=== PATIENT | male | born 1980 | race Caucasian/White ===

== ENCOUNTER 2024-03-14 09:53 | Inpatient (IN) | payer BC, MEDICAID, SELFPAY ==
[2024-03-14 09:58] VITALS: BP 164/94; PULSE 74; RESP 18; TEMP 36.4; O2SAT 99
--- NOTE | 2024-03-14 10:07 | PC.NURSE ---
[facility] CALLED AND STATED THAT PATIENT HAS TOUGHTS OF SI. PATIENT STATES THAT HE WOULD PULL THE TRIGGER TO END HIS LIFE. 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
--- NOTE | 2024-03-14 10:14 | ED.C_ITS ---
HPI - Psych 2 General: Chief Complaint: Psychiatric Symptoms Stated Complaint: MHE, Behavioral Health referral Time Seen by Provider: 03/14/24 10:12 Source: patient Mode of arrival: ambulatory Limitations: no limitations History of Present Illness: Patient is a 43-year-old male presents to ED today after he was seen at [facility] and referred to the emergency department. He reportedly made suicidal statements while he was there. Patient tells me he does feel suicidal. He states he has had many plans in the past. He does report a previous suicide attempt last month by taking his belt and wrapping it around his neck and attempting to hang himself in his loft. He does not take any psychiatric medications. When asked about previous psychiatric diagnoses he tells me cry baby and attention seeking . MD complaint: suicidal ideation and feels depressed Onset (ago): month(s) Duration: constant History of same: Yes Relieving factors: none Exacerbating factors: other (life stressors) Associated psychiatric symptoms: depression and suicidal ideation Associated symptoms: Reports depression and suicidal ideation; Deny auditory hallucinations, visual hallucinations or homicidal ideation Treatments prior to arrival: none If self harm: admits thoughts of self harm, has plan and has acted on plan (last month attempted suicide by hanging) Review of Systems 2 Const: Denies: fever(s) or chills Card: Denies: chest pain, palpitations, lightheadedness or syncope Resp: Denies: dyspnea GI: Denies: abdominal pain, nausea, vomiting or diarrhea Skin/Breast: Denies: rash Neuro: Denies: headache(s) Psych: Reports: depression, hopelessness and suicidal ideation; Denies: visual hallucinations, auditory hallucinations or homicidal ideation [facility] ED 2 PFSH: Medical History Psychiatric care Physical Exam 2 Const: COMMON NORMALS: no acute distress, patient oriented x3, alert and well nourished GENERAL APPEARANCE: cooperative Resp: COMMON NORMALS: normal respiratory effort and clear to auscultation bilaterally AUSCULTATION: clear to auscultation bilaterally Cardio: COMMON NORMALS: regular rate and regular rhythm RATE: regular rate RHYTHM: regular rhythm Neuro: [place] COMA SCALE: document GCS findings [place] coma scale eye opening: Spontaneous [place] coma scale verbal response: Orientated [place] coma scale motor response: Obey commands [place] coma scale total score: 15 COMMON NORMALS: patient oriented x3 SENSORIUM/ORIENTATION: Yes alert Psych: COMMON NORMALS: mental status grossly normal, Normal thought process present, cooperative, normal affect, speech normal and activity/motor behavior normal APPEARANCE: Yes grossly normal ATTITUDE: Yes calm ACTIVITY/MOTOR BEHAVIOR: No psychomotor agitation and Yes Avoids eye contact (attititude/behavior) SPEECH: Yes normal speech MOOD & AFFECT: Yes Flat affect present THOUGHT PROCESS: Normal thought process present THOUGHT CONTENT: Yes Suicidality present ATTENTION/CONCENTRATION: Yes attention grossly intact and Yes concentration grossly intact MEMORY/COGNITION: Yes memory grossly intact and Yes cognition grossly intact INSIGHT: Good insight present (Psych) JUDGEMENT: Good judgement present (Psych) Course 2 Consultations: Consultation #1: Dr. Flores-accepts hospitalization Vital Signs: Vital signs: Vital Signs Temperature 97.6 F 03/14/24 09:58 Pulse Rate 74 03/14/24 09:58 Respiratory Rate 18 03/14/24 09:58 Blood Pressure 164/94 03/14/24 09:58 Pulse Oximetry 99 03/14/24 09:58 Oxygen Delivery Me thod Room Air 03/14/24 09:58 [facility] - Psych Medical Decision Making Patient will be an admit to NPU to Dr. Flores for treatment of depression/suicidal ideations. He was placed on a 96-hour hold. Lab Data 03/14/24 10:11 03/14/24 10:11 Laboratory Results WBC 7.90 10^3/uL (3.29-11.43) 03/14/24 10:11 RBC 5.32 10^6/uL (3.85-5.65) 03/14/24 10:11 Hgb 16.60 g/dL (11.27-16.99) 03/14/24 10:11 Hct 48.5 % (37-53) 03/14/24 10:11 MCV 91.2 fl (82-101) 03/14/24 10:11 MCH 31.2 pg (27-33) 03/14/24 10:11 MCHC 34.2 g/dL (30-55) 03/14/24 10:11 RDW 13.2 % (12.1-15.1) 03/14/24 10:11 Plt Count 231 10^3/cmm (157-399) 03/14/24 10:11 MPV 8.4 fL (7.4-10.4) 03/14/24 10:11 Neut % (Auto) 69.1 % 03/14/24 10:11 Lymph % (Auto) 24.4 % 03/14/24 10:11 Dixie % (Auto) 5.2 % 03/14/24 10:11 Eos % (Auto) 0.4 % 03/14/24 10:11 Baso % (Auto) 0.5 % 03/14/24 10:11 Neut # (Auto) 5.46 10^3/uL (1.8-7.7) 03/14/24 10:11 Lymph # (Auto) 1.9 10^3/uL (0.8-4.8) 03/14/24 10:11 Dixie # (Auto) 0.4 10^3/uL (0.2-0.9) 03/14/24 10:11 Eos # (Auto) 0.0 10^3/uL (0.0-0.8) 03/14/24 10:11 Baso # (Auto) 0.0 10^3/uL (0.0-0.1) 03/14/24 10:11 Nucleated RBC % (auto) 0 % 03/14/24 10:11 Nucleated RBCs # 0.0 /100WBC 03/14/24 10:11 Sodium 133 mmol/L (136-145) L 03/14/24 10:11 Potassium 3.9 mmol/L (3.5-5.1) 03/14/24 10:11 Chloride 99 mmol/L (98-107) 03/14/24 10:11 Carbon Dioxide 19 mmol/L (22-29) L 03/14/24 10:11 Anion Gap 18.9 (5-19) 03/14/24 10:11 BUN 16 mg/dL (6-20) 03/14/24 10:11 Creatinine 1.1 mg/dL (0.7-1.2) 03/14/24 10:11 GFR Calculation 73.4 mL/min (90-130) L 03/14/24 10:11 Glucose 121 mg/dL (65-115) H 03/14/24 10:11 Calculated Osmolality 278 mOsm/kg (285-295) L 03/14/24 10:11 Calcium 9.2 mg/dL (8.5-10.5) 03/14/24 10:11 Total Bilirubin 0.5 mg/dL (0.15-1.2) 03/14/24 10:11 AST 18 U/L (0-40) 03/14/24 10:11 ALT 10 U/L (0-41) 03/14/24 10:11 Alkaline Phosphatase 72 U/L (40-130) 03/14/24 10:11 Total Protein 7.8 g/dL (6.6-8.7) 03/14/24 10:11 Albumin 4.4 g/dL (3.5-5.2) 03/14/24 10:11 Globulin 3.4 g/dL (1.3-4.6) 03/14/24 10:11 Salicylates < 0.3 mg/dL (3-10) L 03/14/24 10:11 Urine Opiates Screen Negative ng/mL (Negative) 03/14/24 10:05 Acetaminophen < 5.0 ug/mL (10-30) L 03/14/24 10:11 Ur Barbiturates Screen Negative ng/mL (Negative) 03/14/24 10:05 Ur Phencyclidine Scrn Negative ng/mL (Negative) 03/14/24 10:05 Ur Amphetamines Screen Negative ng/mL (Negative) 03/14/24 10:05 U Benzodiazepines Scrn Negative ng/mL (Negative) 03/14/24 10:05 Urine Cocaine Screen Negative ng/mL (Negative) 03/14/24 10:05 U Marijuana (THC) Screen Positive ng/mL (Negative) H 03/14/24 10:05 Ethyl Alcohol < 10 mg/dL (0-10) 03/14/24 10:11 No radiology studies performed this visit Discharge Plan Discharge Patient Disposition: Admitted As Inpatient Clinical Impression: Suicidal ideation Condition: Stable Prescriptions: No Action No Known Home Medications Patient Instructions: Opioid Safety, Pain Management Coding Level of Care Code ED Director Trade for Miri Gonzalez
[2024-03-14 10:24] LABS: Basophils % 0.5 %; Eosinophils % 0.4 %; Hematocrit 48.5 % (37-53); Lymphocytes # 1.9 10^3/uL (0.8-4.8); Lymphocytes % 24.4 %; Mean Corpuscular HGB Conc 34.2 g/dL (30-55); Mean Corpuscular Hemoglobin 31.2 pg (27-33); Mean Corpuscular Volume 91.2 fl (82-101); Mean Platelet Volume 8.4 fL (7.4-10.4); Monocytes # 0.4 10^3/uL (0.2-0.9); Monocytes % 5.2 %; Neutrophils # 5.46 10^3/uL (1.8-7.7); Neutrophils % 69.1 %; Nucleated Red Blood Cells % 0 %; Platelet Count 231 10^3/cmm (157-399); Red Blood Count 5.32 10^6/uL (3.85-5.65); Red Cell Distribution Width 13.2 % (12.1-15.1)
[2024-03-14 10:34] LABS: Alanine Aminotransferase 10 U/L (0-41); Albumin Level 4.4 g/dL (3.5-5.2); Alkaline Phosphatase 72 U/L (40-130); Aspartate Amino Transferase 18 U/L (0-40); Blood Urea Nitrogen 16 mg/dL (6-20); Calcium 9.2 mg/dL (8.5-10.5); Carbon Dioxide 19 mmol/L (22-29); Chloride 99 mmol/L (98-107); Creatinine Clr Calc Pharmacy 96.2746; Globulin 3.4 g/dL (1.3-4.6); Glomerular Filtration Rate 73.4 mL/min (90-130); Glucose 121 mg/dL (65-115); Osmolality Calculated 278 mOsm/kg (285-295); Sodium 133 mmol/L (136-145); Total Bilirubin 0.5 mg/dL (0.15-1.2); Total Protein 7.8 g/dL (6.6-8.7)
[2024-03-14 10:36] LABS: Acetaminophen < 5.0 ug/mL (10-30); Alcohol Level < 10 mg/dL (0-10); Salicylate < 0.3 mg/dL (3-10)
[2024-03-14 10:37] LABS: Anion Gap 18.9 (5-19); Potassium 3.9 mmol/L (3.5-5.1)
[2024-03-14 10:38] LABS: Amphetamines Screen Urine Negative (Negative); Barbiturates Screen Urine Negative (Negative); Benzodiazepines Screen Urine Negative (Negative); Cocaine Screen Urine Negative (Negative); Opiate Screen Urine Negative (Negative); PCP Screen Urine Negative (Negative); THC Screen Urine Positive (Negative)
[2024-03-14 11:40] VITALS: RESP 18; O2SAT 98
[2024-03-14 11:52] VITALS: BP 130/87; PULSE 76; RESP 16; TEMP 37.1; O2SAT 100
[2024-03-14 14:00] VITALS: BP 118/79; PULSE 81; RESP 16; TEMP 36.6; O2SAT 99
--- NOTE | 2024-03-14 14:18 | PC.NURSE ---
96 Hr rights reviewed with patient @1125. All education reviewed. Patient verbalized no concerns or questions at this time. Copy left @bedside with patient. Patient provided a cup of coffee.
[2024-03-14 21:58] VITALS: BP 138/82; PULSE 74; RESP 17; TEMP 36.6; O2SAT 97
[2024-03-15 06:00] VITALS: BP 103/72; PULSE 81; RESP 16; TEMP 36.6; O2SAT 100
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
[2024-03-15] MEDS: nicotine 4 mg lozenge MUCOUS MEM (06:47)
[2024-03-15 14:00] VITALS: BP 125/86; PULSE 65; RESP 17; TEMP 36.8; O2SAT 99
[2024-03-15] MEDS: escitalopram 10 mg Tablet PO (14:03)
[2024-03-15] MEDS: trazodone 50 mg Tablet PO (20:07)
[2024-03-15] MEDS: hyDROXYzine 25 mg Capsule 50 MG PO (20:07)
[2024-03-15 21:32] VITALS: BP 114/76; PULSE 63; RESP 16; TEMP 36.5; O2SAT 98
[2024-03-16 06:00] VITALS: BP 128/77; PULSE 74; RESP 15; TEMP 36.6; O2SAT 97
[2024-03-16] MEDS: escitalopram 10 mg Tablet PO (09:49)
[2024-03-16] MEDS: nicotine 4 mg lozenge MUCOUS MEM (10:02)
[2024-03-16] MEDS: acetaminophen 325 mg Tablet 650 MG PO (11:08)
[2024-03-16 14:00] VITALS: BP 130/83; PULSE 80; RESP 20; TEMP 36.6; O2SAT 97
--- NOTE | 2024-03-16 14:37 | P.NPUPN_ITS ---
Subjective NPU 2 Subjective: Patient presented today reporting that he is feeling better with the Lexapro. He denied side effects to the medication and reported feeling optimistic about things moving forward. We discussed the importance of follow up and working with thr social work team on aftercare. Mental Status Exam 2 MSE Comments: This is a well-nourished well-developed white male in hospital scrubs with adequate grooming and limited eye contact. No abnormal movements except for mild psychomotor retardation. Cooperative with exam in mild to moderate distress. Speech was slightly decreased rate and volume. Mood described as better, affect congruent and less subdued. Thought process organized. Thought content: Patient denied suicidal or homicidal ideation, there were no delusions reported or noted, he denied any auditory or visual hallucinations. The patient reported feeling restless. He denied having any current thoughts of hurting himself or others. He also denied feeling paranoid or experiencing hallucinations. He reported having nightmares and flashbacks about traumatic events from his past. He has experienced significant loss recently, with the deaths of his younger brother, father, uncle, and aunt. Attention and concentration appear intact and memory appears reliable but none were formally tested. He is alert and oriented x 3. Insight and judgment are limited and impulse control is impaired. Vitals/I&O/Wt Last Vital Signs Temp 98 F 03/16/24 14:00 Pulse 80 03/16/24 14:00 Resp 20 H 03/16/24 14:00 BP 130/83 03/16/24 14:00 Pulse Ox 97 03/16/24 14:00 O2 Del Method Room Air 03/16/24 06:00 Data NPU 03/14/24 10:11 03/14/24 10:11 A&P Assessment and plan (1) Suicidal ideation: (2) Major depressive disorder, recurrent: (3) PTSD (post-traumatic stress disorder): Plan Patient is a 43-year-old male admitted with a history of depression, suicidal thoughts, and attempts. He has been through significant trauma in his childhood and has experienced recent losses. He has a history of substance use, including tobacco, alcohol, and cannabis. He is open to restarting medication for his depression and anxiety. 1. Started Lexapro 10 mg p.o. daily. 2. Encourage individual, group and milieu therapy. 3. Continue q-15 minute checks for safety.? 4.?Recommend sober living treatment at the highest level of care to which the patient is willing to commit. Involuntary Hold Information 2 96 Hour Hold: 96 Hour Involuntary Admission: Yes 96 Hour Hold Ending Date: 03/20/24 96 Hour Hold Ending Time: 10:45 Attestations NPU 2 Medical Necessity Statement*: Inpatient hospitalization is medically necessary and the clinically appropriate intervention ?at this time.? We will monitor/initiate medications and make changes as indicated. Likely length of stay 2-4 days. Coding Level of Care Code Acute Code for [facility]g Fwd Diagnoses Suicidal ideation R45.851 Major depressive disorder, recurrent F33.9 PTSD (post-traumatic stress disorder) F43.10
[2024-03-16] MEDS: ibuprofen 600 mg Tablet PO (16:24)
[2024-03-16 20:56] VITALS: BP 126/77; PULSE 66; RESP 18; TEMP 36.7; O2SAT 99
[2024-03-16] MEDS: trazodone 50 mg Tablet PO (21:12)
[2024-03-17 06:00] VITALS: BP 122/67; PULSE 71; RESP 17; TEMP 36.7; O2SAT 98
[2024-03-17] MEDS: ibuprofen 600 mg Tablet PO (07:54)
[2024-03-17] MEDS: escitalopram 10 mg Tablet PO (07:55)
[2024-03-17] MEDS: nicotine 4 mg lozenge MUCOUS MEM ×4 (10:12→21:28)
[2024-03-17 14:00] VITALS: BP 127/87; PULSE 66; RESP 20; TEMP 36.6; O2SAT 99
--- NOTE | 2024-03-17 15:49 | P.NPUPN_ITS ---
Subjective NPU 2 Subjective: Patient presented today reporting that things are going all right. He reports that he has been talking to his support network and they feel he is doing better as well. We discussed the social work team working on him having an appointment for after discharge. He denied any side effects to medication we discussed the likelihood of discharge in the next 48 hours with a tentative plan for discharge tomorrow. Mental Status Exam 2 MSE Comments: This is a well-nourished well-developed white male in hospital scrubs with adequate grooming and limited eye contact. No abnormal movements except for mild psychomotor retardation. Cooperative with exam in mild to moderate distress. Speech was slightly decreased rate and volume. Mood described as better, affect congruent and less subdued. Thought process organized. Thought content: Patient denied suicidal or homicidal ideation, there were no delusions reported or noted, he denied any auditory or visual hallucinations. The patient reported feeling restless. He denied having any current thoughts of hurting himself or others. He also denied feeling paranoid or experiencing hallucinations. He reported having nightmares and flashbacks about traumatic events from his past. He has experienced significant loss recently, with the deaths of his younger brother, father, uncle, and aunt. Attention and concentration appear intact and memory appears reliable but none were formally tested. He is alert and oriented x 3. Insight and judgment are limited and impulse control is impaired. Vitals/I&O/Wt Last Vital Signs Temp 98.1 F 03/17/24 06:00 Pulse 71 03/17/24 06:00 Resp 17 03/17/24 06:00 BP 122/67 03/17/24 06:00 Pulse Ox 98 03/17/24 06:00 O2 Del Method Room Air 03/17/24 06:00 Data NPU 03/14/24 10:11 03/14/24 10:11 A&P Assessment and plan (1) Suicidal ideation: (2) Major depressive disorder, recurrent: (3) PTSD (post-traumatic stress disorder): Plan Patient is a 43-year-old male admitted with a history of depression, suicidal thoughts, and attempts. He has been through significant trauma in his childhood and has experienced recent losses. He has a history of substance use, including tobacco, alcohol, and cannabis. He is open to restarting medication for his depression and anxiety. 1. Started Lexapro 10 mg p.o. daily. 2. Encourage individual, group and milieu therapy. 3. Continue q-15 minute checks for safety.? 4.?Recommend sober living treatment at the highest level of care to which the patient is willing to commit. Involuntary Hold Information 2 96 Hour Hold: 96 Hour Involuntary Admission: Yes 96 Hour Hold Ending Date: 03/20/24 96 Hour Hold Ending Time: 10:45 Attestations NPU 2 Medical Necessity Statement*: Inpatient hospitalization is medically necessary and the clinically appropriate intervention ?at this time.? We will monitor/initiate medications and make changes as indicated. Likely length of stay 1-3 days. Coding Level of Care Code Acute Code for g Fwd Diagnoses Suicidal ideation R45.851 Major depressive disorder, recurrent F33.9 PTSD (post-traumatic stress disorder) F43.10
[2024-03-17 21:57] VITALS: BP 115/75; PULSE 72; RESP 18; TEMP 36.3; O2SAT 99
[2024-03-18 06:00] VITALS: BP 113/74; PULSE 73; RESP 18; TEMP 36.6; O2SAT 99
[2024-03-18] MEDS: nicotine 4 mg lozenge MUCOUS MEM ×2 (06:24→12:05)
[2024-03-18] MEDS: ibuprofen 600 mg Tablet PO (09:21)
[2024-03-18] MEDS: escitalopram 10 mg Tablet PO (09:21)
--- NOTE | 2024-03-18 14:14 | P.NPUDS_ITS ---
Diagnoses at Discharge Discharge Diagnosis (1) Suicidal ideation: Status: Acute (2) Major depressive disorder, recurrent: Status: Acute (3) PTSD (post-traumatic stress disorder): Status: Acute Reason for Visit Reason for Visit: MHE, Behavioral Health referral Involuntary Hold Information 96 Hour Hold: 96 Hour Involuntary Admission: Yes 96 Hour Hold Ending Date: 03/20/24 96 Hour Hold Ending Time: 10:45 Mental Status Exam MSE Comments: This is a well-nourished well-developed white male in hospital scrubs with adequate grooming and limited eye contact. No abnormal movements except for mild psychomotor retardation. Cooperative with exam in mild to moderate distress. Speech was slightly decreased rate and volume. Mood described as better, affect congruent and less subdued. Thought process organized. Thought content: Patient denied suicidal or homicidal ideation, there were no delusions reported or noted, he denied any auditory or visual hallucinations. The patient reported feeling restless. He denied having any current thoughts of hurting himself or others. He also denied feeling paranoid or experiencing hallucinations. He reported having nightmares and flashbacks about traumatic events from his past. He has experienced significant loss recently, with the deaths of his younger brother, father, uncle, and aunt. Attention and concentration appear intact and memory appears reliable but none were formally tested. He is alert and oriented x 3. Insight and judgment are limited and impulse control is impaired. Discharge Data Studies Completed and Pending: Laboratory Results WBC 7.90 10^3/uL (3.2 9-11.43) 03/14/24 10:11 RBC 5.32 10^6/uL (3.8 5-5.65) 03/14/24 10:11 Hgb 16.60 g/dL (11.27 -16.99) 03/14/24 10:11 Hct 48.5 % (37-53) 03/14/24 10:11 MCV 91.2 fl (82-101) 03/14/24 10:11 MCH 31.2 pg (27-33) 03/14/24 10:11 MCHC 34.2 g/dL (30-55) 03/14/24 10:11 RDW 13.2 % (12.1-15.1 ) 03/14/24 10:11 Plt Count 231 10^3/cmm (157 -399) 03/14/24 10:11 MPV 8.4 fL (7.4-10.4) 03/14/24 10:11 Neut % (Auto) 69.1 % 03/14/24 10:11 Lymph % (Auto) 24.4 % 03/14/24 10:11 Gem % (Auto) 5.2 % 03/14/24 10:11 Eos % (Auto) 0.4 % 03/14/24 10:11 Baso % (Auto) 0.5 % 03/14/24 10:11 Neut # (Auto) 5.46 10^3/uL (1.8 -7.7) 03/14/24 10:11 Lymph # (Auto) 1.9 10^3/uL (0.8- 4.8) 03/14/24 10:11 Gem # (Auto) 0.4 10^3/uL (0.2- 0.9) 03/14/24 10:11 Eos # (Auto) 0.0 10^3/uL (0.0- 0.8) 03/14/24 10:11 Baso # (Auto) 0.0 10^3/uL (0.0- 0.1) 03/14/24 10:11 Nucleated RBC % (a uto) 0 % 03/14/24 10:11 Nucleated RBCs # 0.0 /100WBC 03/14/24 10:11 Sodium 133 mmol/L (136-1 45) L 03/14/24 10:11 Potassium 3.9 mmol/L (3.5-5 .1) 03/14/24 10:11 Chloride 99 mmol/L (98-107 ) 03/14/24 10:11 Carbon Dioxide 19 mmol/L (22-29) L 03/14/24 10:11 Anion Gap 18.9 (5-19) 03/14/24 10:11 BUN 16 mg/dL (6-20) 03/14/24 10:11 Creatinine 1.1 mg/dL (0.7-1. 2) 03/14/24 10:11 GFR Calculation 73.4 mL/min (90-1 30) L 03/14/24 10:11 Glucose 121 mg/dL (65-115 ) H 03/14/24 10:11 Calculated Osmolal ity 278 mOsm/kg (285- 295) L 03/14/24 10:11 Calcium 9.2 mg/dL (8.5-10 .5) 03/14/24 10:11 Total Bilirubin 0.5 mg/dL (0.15-1 .2) 03/14/24 10:11 AST 18 U/L (0-40) 03/14/24 10:11 ALT 10 U/L (0-41) 03/14/24 10:11 Alkaline Phosphata se 72 U/L (40-130) 03/14/24 10:11 Total Protein 7.8 g/dL (6.6-8.7 ) 03/14/24 10:11 Albumin 4.4 g/dL (3.5-5.2 ) 03/14/24 10:11 Globulin 3.4 g/dL (1.3-4.6 ) 03/14/24 10:11 Salicylates < 0.3 mg/dL (3-10 ) L 03/14/24 10:11 Urine Opiates Scre en Negative ng/mL (N egative) 03/14/24 10:05 Acetaminophen < 5.0 ug/mL (10-3 0) L 03/14/24 10:11 Ur Barbiturates Sc reen Negative ng/mL (N egative) 03/14/24 10:05 Ur Phencyclidine S crn Negative ng/mL (N egative) 03/14/24 10:05 Ur Amphetamines Sc reen Negative ng/mL (N egative) 03/14/24 10:05 U Benzodiazepines Scrn Negative ng/mL (N egative) 03/14/24 10:05 Urine Cocaine Scre en Negative ng/mL (N egative) 03/14/24 10:05 U Marijuana (THC) Screen Positive ng/mL (N egative) H 03/14/24 10:05 Ethyl Alcohol < 10 mg/dL (0-10) 03/14/24 10:11 Vitals: Last Vital Signs Temp 97.8 F 03/18/24 06:00 Pulse 73 03/18/24 06:00 Resp 18 03/18/24 06:00 BP 113/74 03/18/24 06:00 Pulse Ox 99 03/18/24 06:00 O2 Del Method Room Air 03/17/24 06:00 Discharge Plan Discharge Patient Disposition: Home Condition: Stable Prescriptions: New trazodone 50 mg Tablet 50 mg PO BEDTIME PRN (Reason: Sleep) 30 Days Qty: 30 1RF escitalopram oxalate 10 mg Tablet 10 mg PO DAILY 30 Days Qty: 30 1RF No Action No Known Home Medications Discharge Orders: Discharge Order (Routine); Ordered 03/18/24 Ordered By: Jah Flores Referrals: [facility] [Outside] - 03/23/24 8:45 am (Hospital discharge assessment for safety with Sh[facility]) Discharge Diet: Regular Discharge Activity: Resume usual activity Patient Instructions: Opioid Safety, Pain Management Discharge Attestations NPU Time Spent in Discharge Care*: less than 30 min Specific Discharge Activities: Specific discharge activities: educating patient, discussing with family independence case manager/social workers/dc planners, documenting/other paperwork and evaluating patient/reviewing data Coding Level of Care Code Acute Code for Chg Fwd Diagnoses Suicidal ideation R45.851 Major depressive disorder, recurrent F33.9 PTSD (post-traumatic stress disorder) F43.10
[2024-03-18 14:31] VITALS: BP 113/74; PULSE 73; RESP 18; TEMP 36.6; O2SAT 99
== END 2024-03-18 15:20 | disposition home or self-care (01) | DRG 885 ==
LOC: ER 11:17 → NP 11:25
PROVIDERS: Admitting Provider Psychiatry & Neurology Psychiatry; Emergency Provider Physician Assistant; Visit Provider Psychiatry & Neurology Psychiatry
DX: F33.9 Major depressive disorder, recurrent, unspecified (principal); R45.851 Suicidal ideations; F41.9 Anxiety disorder, unspecified; F43.10 Post-traumatic stress disorder, unspecified; Z63.4 Disappearance and death of family member; F17.210 Nicotine dependence, cigarettes, uncomplicated; Z91.51 Personal history of suicidal behavior
CPT/HCPCS: 80053; 80306; 80307; 85025; 97150; 97165; 99285

== ENCOUNTER 2025-02-09 00:52 | Emergency (ER) | payer BC, MEDICAID, SELFPAY ==
[2025-02-09 01:04] VITALS: BP 144/90; PULSE 76; RESP 18; TEMP 36.6; O2SAT 96; BMI 21.8
--- NOTE | 2025-02-09 01:32 | W.ED.PSYCHS ---
HPI - Psych General: Chief Complaint: Psychiatric Symptoms Stated Complaint: MHE Time Seen by Provider: 02/09/25 00:59 History of Present Illness: Patient is a male of unspecified age who was brought to the ED by police after making concerning statements. Patient reports that his truck broke down, requiring him to walk approximately [address] town. He states he consumed four shots of [place] honey alcohol while walking. Patient was staying at a friend's house when police arrived and brought him to the ED because he had made inappropriate statements, including telling an officer if he wanted to do me the best favor, he'd just pull his gun off and shoot me. Patient reports he was tired, upset about his truck breaking down, and states it's just one thing after another. He denies being rebellious but acknowledges he wasn't in the greatest of moods when police arrived. Patient reports history of depression all my life and previous ED visit last year for similar concerns. He was prescribed medication (name not recalled) by Dr. Flores. Patient discontinued the medication after seeing providers at [facility] in [place] and [facility]. He states the medications didn't seem to help me that much and believes his mental health is more affected by his environment than requiring medication. Patient reports significant psychosocial stressors including the of his brother in [place] [facility] in 2019, followed by his father's the subsequent year. He describes feeling that he failed him and my family and myself. Patient also reports medical history of brain aneurysm and a couple of strokes approximately 15 years ago. He expresses frustration with his current inability to function at the level he previously could, stating I can't seem to function anymore, and it bothers me. As a man, it bothers me real bad. 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 He expresses desire to return to work and denies current suicidal ideation. He acknowledges poor coping with stress, stating I get overwhelmed and stressed out for things that should not overwhelm me or stress me out. Related Data Previous Rx's ?Medication ?Instructions ?Recorded escitalopram oxalate 10 mg tablet 10 mg PO DAILY 30 days #30 tabs 03/18/24 trazodone 50 mg tablet 50 mg PO BEDTIME PRN Sleep 30 days 03/18/24 #30 tabs buspirone 5 mg tablet 5 mg PO TID #90 tabs 05/11/24 Allergies Allergy/AdvReac Type Severity Reaction Status Date / Time NKDA Allergy NKDA Uncoded 02/09/25 01:35 Review of Systems General: Reports: 10 or more systems reviewed and unremarkable except in HPI and below PFSH ED PFSH: Medical History Psychiatric care Social History Smoking and tobacco/nicotine status: current every day tobacco/nicotine user (1 PPD) Physical Exam Const: COMMON NORMALS: no acute distress, patient oriented x3, alert and well nourished HENMT: COMMON NORMALS: normocephalic HEAD & SCALP: normocephalic Eye: COMMON NORMALS: Equal, round and reactive pupils present, EOMs intact bilaterally and conjunctivae normal CONJUNCTIVA: Yes conjunctivae normal PUPIL: Yes Equal, round and reactive pupils present Chest: COMMONS NORMALS: normal inspection of the chest and normal palpation of entire chest wall Resp: COMMON NORMALS: normal respiratory effort, No retractions, No use of accessory muscles, clear to auscultation bilaterally and percussion normal AUSCULTATION: clear to auscultation bilaterally PERCUSSION: percussion normal GI: COMMON NORMALS: Normal to inspection, nondistended, normoactive bowel sounds present, Soft to palpation, non-tender, No hepatosplenomegaly present, no masses and no bruits PALPATION: Yes Soft to palpation and Yes No hepatosplenomegaly present Extremity: COMMON NORMALS: normal to inspection, full ROM, capillary refill normal, no joint enlargement, no clubbing, cyanosis or edema, no calf tenderness and no pedal edema Neuro: COMMON NORMALS: patient oriented x3 SENSORIUM/ORIENTATION: Yes alert Psych: COMMON NORMALS: Normal thought process present and speech normal APPEARANCE: Yes grossly normal ACTIVITY/MOTOR BEHAVIOR: Yes appropriate eye contact SPEECH: Yes normal speech MOOD & AFFECT: Yes euthymic mood THOUGHT PROCESS: Normal thought process present THOUGHT CONTENT: Yes Normal thought content present JUDGEMENT: Good judgement present (Psych) Skin: COMMON NORMALS: no rashes or lesions noted, turgor normal and no jaundice GENERAL SKIN EXAM: no rashes or lesions noted and turgor normal Course Vital Signs: Vital signs: Vital Signs Temperature 97.8 F 02/09/25 01:04 Pulse Rate 76 02/09/25 01:04 Respiratory Rate 18 02/09/25 01:04 Blood Pressure 144/90 02/09/25 01:04 Pulse Oximetry 96 02/09/25 01:04 Oxygen Delivery Me thod Room Air 02/09/25 01:04 MDM - Psych Medical Decision Making 1. Suicidal Ideation, situational: - Patient made concerning statements to police liaison officer in context of alcohol use, frustration over vehicle breakdown, and chronic stressors - Currently denies active suicidal ideation, intent, or plan - Risk assessment indicates low acute risk with chronic moderate risk factors - Patient has insight into his condition and willingness to engage in treatment - Plan: Discharge home with outpatient follow-up rather than inpatient psychiatric admission 2. Depression, chronic: - Long-standing history of depression with previous treatment attempts - Exacerbated by significant psychosocial stressors including deaths of brother and father - Previous medication trials unsuccessful according to patient - Plan: Refer to outpatient mental health services for counseling and possible medication management - Discussed importance of consistent follow-up with mental health providers 3. Alcohol use: - Patient acknowledges alcohol consumption prior to incident - Discussed negative impact of alcohol on depression and decision-making - Patient expressed understanding that alcohol doesn't make me feel better and agreement to avoid use 4. Psychosocial stressors: - Multiple significant stressors including grief, medical history, and work stress - Plan: Recommend stress management techniques, exercise, and engagement in positive activities - Will provide information on local support groups and resources Patient to be discharged home when paperwork completed. Patient understands recommendations and agrees with plan. No radiology studies performed this visit ED provider radiology interpretation(s): None Discharge Plan Discharge Patient Disposition: Home Clinical Impression: Depression, Alcohol abuse Condition: Stable Prescriptions: No Action buspirone 5 mg tablet 5 mg PO TID Qty: 90 2RF trazodone 50 mg Tablet 50 mg PO BEDTIME PRN (Reason: Sleep) 30 Days Qty: 30 1RF escitalopram oxalate 10 mg Tablet 10 mg PO DAILY 30 Days Qty: 30 1RF Discharge Orders: Discharge ED (Routine); Ordered 02/09/25 Ordered By: Steven Lopez Referrals: Sharon Lovell FNP [Primary Care Provider, Nurse Practitioner] Discharge Diet: Advance as tolerated Discharge Activity: Resume usual activity Patient Instructions: Opioid Safety, Pain Management Activity Restrictions/Additional Instructions: 1. Follow up with counseling and PCP. Please give mental health resources in area. 2. Return to ED for new or worsening symptoms or thoughts of self harm / hurting others. Print Language: Burkinan Coding Level of Care Code ED Small Machine Bindery Operator for Miri Gonzalez
[2025-02-09 01:43] VITALS: BP 144/90; PULSE 79; O2SAT 98
--- NOTE | 2025-02-09 02:09 | ECG_ITS ---
[facility] 2025[facility]09 Pat Name: Alton Richardson Department: Room: Gender: Male Coding Spec: : 1980 Requested By: Steven Lopez Order Number: [id number] Jeff MD: Johann Kapadia M.D. Measurements Intervals [place] Rate: 70 P: 60 VA: 149 QRS: 72 QRSD: 128 T: 64 QT: 396 QTc: 430 Interpretive Statements SINUS RHYTHM MODERATE INTRAVENTRICULAR CONDUCTION DELAY [110+ ms QRS DURATION] No previous ECG available for comparison Electronically Signed On 02-09-2025 15:02:55 CDT by Johann Kapadia M.D. [email or web address]
== END 2025-02-09 01:45 | disposition home or self-care (01) ==
PROVIDERS: Emergency Provider Family Medicine; PCP Nurse Practitioner Family
DX: F32.A Depression, unspecified (principal); F10.10 Alcohol abuse, uncomplicated; F17.210 Nicotine dependence, cigarettes, uncomplicated
CPT/HCPCS: 93005; 99283